=== PATIENT | female | born 1945 ===

== ENCOUNTER 2018-06-22 11:38 | Emergency (ER) | payer MEDICARE, BC | END 2018-06-22 13:43 | disposition left against medical advice (07) | LOC: UCEAST 11:38 | DX: R21 Rash and other nonspecific skin eruption (principal); Z53.21 Procedure and treatment not carried out due to patient leaving prior to being seen by health care provider ==

== ENCOUNTER 2018-06-23 09:48 | Emergency (ER) | payer MEDICARE, BC ==
--- NOTE | 2018-06-23 10:13 | UC ---
Skin Complaint HPI - HPI Summary HPI Summary: 73-year-old female presents with complaints of a pruritic rash to her back and chest for approximately 3 to have weeks. States that back in December 2017 she was placed on doxycycline for a rash on her face. She stopped the doxycycline at the onset of the rash however rash persisted. She has treated with over-the- counter hydrocortisone cream with some improvement in the symptoms however rash returned when she stopped using this. Denies fever, chills, swelling of the lips, tongue, throat, difficulty breathing, changes in soaps, detergents, lotions, cosmetics, or known contact with any environmental irritants. - History of Current Complaint Chief Complaint: UCSkin Time Seen by Provider: 06/23/18 09:57 Stated Complaint: RASH ON BACK Hx Obtained From: Patient Pain Intensity: 0 - Allergy/Home Medications Allergies/Adverse Reactions: Allergies Allergy/AdvReac Type Severity Reaction Status Date / Time LEATHA Inhibitors Allergy Severe Swelling Verified 06/23/18 10:00 adhesive tape Allergy Intermediate Blisters Verified 06/23/18 10:00 clams Allergy Intermediate Rash Verified 06/23/18 10:00 Iodinated Contrast- Oral and Allergy Intermediate Rash Verified 06/23/18 10:00 IV Dye PMH/Surg Hx/FS Hx/Imm Hx Endocrine History: Hypothyroidism, Dyslipidemia Cardiovascular History: Hypertension GI/ History: Gastroesophageal Reflux - Surgical History Surgical History: Yes Surgery Procedure, Year, and Place: repair coil winder. tmj - Family History Known Family History: Positive: Non-Contributory - Social History Occupation: Retired Lives: Alone Alcohol Use: Occasionally Substance Use Type: None Smoking Status (MU): Former Smoker Review of Systems All Other Systems Reviewed And Are Negative: Yes Constitutional: Negative: Fever, Chills Skin: Positive: Rash Eyes: Positive: Negative ENT: Positive: Negative Respiratory: Positive: Negative Cardiovascular: Positive: Negative Gastrointestinal: Positive: Negative Genitourinary: Positive: Negative Musculoskeletal: Positive: Negative Neurological: Positive: Negative Is Patient Immunocompromised?: No Physical Exam - Summary Physical Exam Summary: GENERAL APPEARANCE: Well developed, well nourished, alert and cooperative, and appears to be in no acute distress. MOUTH/THROAT: No swelling of the lips, tongue, or throat. Pharynx normal. No tonsilar inflammation, swelling, exudate, or lesions. Uvula midline. Airway intact. NECK: Neck supple, non-tender without lymphadenopathy. CARDIAC: Normal S1 and S2. No S3, S4 or murmurs. Rhythm is regular. There is no peripheral edema, cyanosis or pallor. Extremities are warm and well perfused. Capillary refill is less than 2 seconds. Peripheral pulses intact. LUNGS: Clear to auscultation without rales, rhonchi, wheezing or diminished breath sounds. ABDOMEN: Positive bowel sounds. Soft, nondistended, nontender. No guarding or rebound. No masses or hepatosplenomegally. MUSKULOSKELETAL: ROM intact to all extremities. No joint erythema or tenderness. Normal muscular development. Normal gait. SKIN: Diffuse papular rash with crusting to back and chest between the breasts. Triage Information Reviewed: Yes Vital Signs: Initial Vital Signs Temp 97.3 F 06/23/18 09:56 Pulse 65 06/23/18 09:56 Resp 16 06/23/18 09:56 BP 142/64 06/23/18 09:56 Pulse Ox 98 06/23/18 09:56 Vital Signs Reviewed: Yes Course/Dx - Course Course Of Treatment: 73-year-old female presents with complaints of a pruritic rash to her back and chest for approximately 3 to have weeks. States that back in December 2017 she was placed on doxycycline for a rash on her face. She stopped the doxycycline at the onset of the rash however rash persisted. She has treated with over-the- counter hydrocortisone cream with some improvement in the symptoms however rash returned when she stopped using this. Denies fever, chills, swelling of the lips, tongue, throat, difficulty breathing, changes in soaps, detergents, lotions, cosmetics, or known contact with any environmental irritants. Afebrile. Hypertensive otherwise vital signs stable. Exam was remarkable for a diffuse papular rash with crusting to her back and chest between her breasts. Since her symptoms didn't improve with using a topical steroid we will treat her using a high potency topical steroid. She is to start using clobetasol 0.05 % topical ointment twice a day for up to 2 weeks. She is to follow-up with her primary care provider if symptoms do not improve. Anticipatory guidance and warning symptoms were reviewed with the patient. Verbalizes understanding and agrees with plan of care. - Differential Diagnoses - Skin Complaint Differential Diagnoses: Allergic Reaction, Contact Dermatitis, Drug Rash - Diagnoses Provider Diagnosis: Dermatitis Discharge - Sign-Out/Discharge Documenting (check all that apply): Patient Departure All imaging exams completed and their final reports reviewed: No Studies - Discharge Plan Condition: Stable Disposition: HOME Prescriptions: Clobetasol 0.05% OINT* 1 applic TOPICAL BID #1 tube Patient Education Materials: Dermatitis (ED) Referrals: No Primary Care Phys,NOPCP [Primary Care Provider] - Additional Instructions: I am unsure of the exact cause of your rash but since it did respond to the use of hydrocortisone we will treat with a higher potency topical steroid. Start clobetasol ointment twice a day. Do not use for more than 2 weeks. Follow up with your primary care provider in 2 weeks if no improvement in your symptoms. Seek immediate medical attention in the emergency room if you have swelling of the lips, tongue, or throat, have difficulty breathing, or any worsening of symptoms. - Billing Disposition and Condition Condition: STABLE Disposition: Home
== END 2018-06-23 10:19 | disposition home or self-care (01) ==
LOC: UCEAST 09:48
DX: L30.9 Dermatitis, unspecified (principal); E03.9 Hypothyroidism, unspecified; E78.5 Hyperlipidemia, unspecified; I10 Essential (primary) hypertension; K21.9 Gastro-esophageal reflux disease without esophagitis; Z91.041 Radiographic dye allergy status; Z91.013 Allergy to seafood; Z88.8 Allergy status to other drugs, medicaments and biological substances; Z91.048 Other nonmedicinal substance allergy status; Z87.891 Personal history of nicotine dependence
CPT/HCPCS: 99212; G0463

== ENCOUNTER 2018-07-09 13:33 | Emergency (ER) | payer MEDICARE, BC ==
[2018-07-09 13:49] VITALS: BP 138/58
--- NOTE | 2018-07-09 14:29 | UC ---
Ear Complaint HPI - HPI Summary HPI Summary: 73-year-old female presents with fullness in her right ear, multiple tearing and dizziness last night. She denies any fever shakes chills or pain with movement of the ear. She has had cerumen impaction in the past. She denies nausea vomiting or diarrhea. - History of Current Complaint Chief Complaint: UCEar Stated Complaint: R EAR PAIN Time Seen by Provider: 07/09/18 14:19 Hx Obtained From: Patient Pain Intensity: 0 - Allergies/Home Medications Allergies/Adverse Reactions: Allergies Allergy/AdvReac Type Severity Reaction Status Date / Time LEATHA Inhibitors Allergy Severe Swelling Verified 07/09/18 13:49 adhesive tape Allergy Intermediate Blisters Verified 07/09/18 13:49 clams Allergy Intermediate Rash Verified 07/09/18 13:49 Iodinated Contrast- Oral and Allergy Intermediate Rash Verified 07/09/18 13:49 IV Dye PMH/Surg Hx/FS Hx/Imm Hx Endocrine History: Hypothyroidism, Dyslipidemia - Surgical History Surgical History: Yes Surgery Procedure, Year, and Place: therapeutic strategy lead. tmj - Family History Known Family History: Positive: Non-Contributory - Social History Occupation: Retired Lives: Alone Alcohol Use: Occasionally Substance Use Type: None Smoking Status (MU): Former Smoker Review of Systems All Other Systems Reviewed And Are Negative: Yes Constitutional: Negative: Fever, Chills Skin: Positive: Negative ENT: Positive: Ear Ache Respiratory: Positive: Negative Cardiovascular: Positive: Negative Neurological: Positive: Other - Dizziness Physical Exam Triage Information Reviewed: Yes Appearance: Well-Appearing, No Pain Distress, Well-Nourished Vital Signs: Initial Vital Signs Temp 97.4 F 07/09/18 13:45 Pulse 56 07/09/18 13:45 Resp 18 07/09/18 13:45 BP 138/58 07/09/18 13:45 Pulse Ox 100 07/09/18 13:45 Eyes: Positive: Conjunctiva Clear ENT: Positive: Pharynx normal, Other - The right TM is obscured by cerumen impaction of the canal. Negative: Nasal congestion, Sinus tenderness Neck: Positive: Supple Respiratory: Positive: Lungs clear Cardiovascular: Positive: RRR Musculoskeletal: Positive: Strength Intact Neurological: Positive: Alert Skin Exam: Normal Procedures - Procedure Summary Procedure Summary: Irrigation of cerumen impaction: The patient was laid on her left side and first irrigated with a syringe full of hydrogen peroxide through a blunt tipped catheter. She was then irrigated with warm water which resolved her cerumen impaction. She tolerated this well without complication. Ear Complaint Course/Dx - Course Course Of Treatment: Patient was clear cerumen impaction that was irrigated out. Her symptoms are now resolved. - Differential Dx/Diagnosis Differential Diagnosis/HQI/PQRI: Cerumen Impaction, Otitis Externa, Otitis Media Provider Diagnosis: Impacted cerumen, right ear Discharge - Sign-Out/Discharge Documenting (check all that apply): Patient Departure All imaging exams completed and their final reports reviewed: No Studies - Discharge Plan Condition: Improved Disposition: HOME Patient Education Materials: Cerumen Impaction (ED) Referrals: [facility] [Outside] Additional Instructions: You can use [id number] ear wax softeners or water mixed with hydrogen peroxide. Return with hearing loss, dizziness, ear pain, worse or other concerns. - Billing Disposition and Condition Condition: IMPROVED Disposition: Home - Attestation Statements Document Initiated by Scribe: No
== END 2018-07-09 14:45 | disposition home or self-care (01) ==
LOC: UCEAST 13:33
DX: H61.21 Impacted cerumen, right ear (principal); R42 Dizziness and giddiness; E03.9 Hypothyroidism, unspecified; E78.5 Hyperlipidemia, unspecified; Z91.041 Radiographic dye allergy status; Z91.013 Allergy to seafood; Z88.8 Allergy status to other drugs, medicaments and biological substances; Z91.048 Other nonmedicinal substance allergy status; Z87.891 Personal history of nicotine dependence
CPT/HCPCS: 99213; G0463

== ENCOUNTER 2019-07-15 09:46 | Observation (INO) ==
[2019-07-15 10:19] LABS: ABS Eosinophils 0.1 10^3/ul (0-0.6); ABS Lymphocytes 1.5 10^3/ul (1.0-4.8); ABS Monocytes 0.3 10^3/ul (0-0.8); Eosinophil % 1.8 %; Hematocrit 41 % (35-47); Hemoglobin 14.3 g/dL (12.0-16.0); Lymphocyte % 32.6 %; Mean Corpuscular HGB Conc 35 g/dL (31-36); Mean Corpuscular Hemoglobin 32 pg (27-31); Mean Corpuscular Volume 93 fL (80-97); Mean Platelet Volume 8.7 fL (7.4-10.4); Nucleated Red Blood Cells % 0.1; Platelet Count 223 10^3/uL (150-450); Red Blood Count 4.43 10^6 /uL (3.70-4.87); Red Cell Distribution Width 14 % (10-15); White Blood Count 4.5 10^3/uL (3.5-10.8)
[2019-07-15] MEDS ORDERED: Ondansetron 4 mg VIAL 2 MG/ML 2 ml VIAL IV ONE (10:19)
[2019-07-15 10:30] LABS: INR 1.06 (0.82-1.09)
[2019-07-15 12:34] LABS: Albumin 4.2 g/dL (3.2-5.2); Albumin/Globulin Ratio 1.6 (1-3); BUN/Creatinine Ratio 30.6 (8-20); Calcium 9.3 mg/dL (8.6-10.3); EGFR African American 96.1 (>60); EGFR Non-African American 79.4 (>60); Globulin 2.7 g/dL (2-4); Potassium 4.4 mmol/L (3.5-5.0); Total Bilirubin 0.7 mg/dL (0.2-1.0); Total Protein 6.9 g/dL (6.4-8.9)
[2019-07-15] MEDS ORDERED: Ondansetron 4 mg VIAL 2 MG/ML 2 ml VIAL IV PRN (14:27)
[2019-07-15] MEDS: Enoxaparin 40 MG/0.4 ML SYR(*) SUBCUT SCH (16:35)
[2019-07-15] MEDS ORDERED: ESOMEPRAZOLE PO SCH (18:00)
[2019-07-15] MEDS ORDERED: HYOSCYAMINE 0.375 MG PO PRN (19:19)
[2019-07-15] MEDS ORDERED: COENZYME Q10 30 MG PO SCH (21:00)
[2019-07-15] MEDS: NEBIVOLOL 10 MG PO SCH (21:09)
[2019-07-15] MEDS: Diclofenac Sod EC 25 mg TAB PO SCH (21:09)
[2019-07-15] MEDS: COENZYME Q10 200 MG PO SCH (22:25)
[2019-07-16] MEDS ORDERED: Nebivolol 5 mg TAB (NF) PO SCH (09:00)
[2019-07-16] MEDS ORDERED: Hyoscyamine ER 0.375 mg (NF) TAB PO SCH (09:00)
[2019-07-16 12:46] VITALS: BP 128/66
[2019-07-16] MEDS: NEBIVOLOL 10 MG PO SCH (14:14)
[2019-07-16] MEDS: Diclofenac Sod EC 25 mg TAB PO SCH (14:14)
[2019-07-16] MEDS: COENZYME Q10 200 MG PO SCH (14:15)
[2019-07-16] MEDS: Enoxaparin 40 MG/0.4 ML SYR(*) SUBCUT SCH (15:01)
[2019-07-17] MEDS ORDERED: Hyoscyamine ER 0.375 mg (NF) TAB PO SCH (09:00)
== END 2019-07-16 15:27 | disposition home or self-care (01) ==
LOC: ED 09:46 → MEDTELE 09:46
PROVIDERS: ADMIT Internal Medicine; ATTEND Internal Medicine